=== PATIENT | female | born 1950 | race Caucasian/White ===

== ENCOUNTER → 2018-09-04 | Outpatient (CLI) | payer OTHER, MEDICARE | LOC: CAT 08:00 | DX: R91.1 Solitary pulmonary nodule (principal) ==

== ENCOUNTER → 2019-08-16 | Outpatient (CLI) | payer OTHER, MEDICARE | LOC: CAT 10:43 | DX: R91.1 Solitary pulmonary nodule (principal); J98.4 Other disorders of lung; M25.78 Osteophyte, vertebrae ==

== ENCOUNTER → 2020-09-11 | Outpatient (CLI) | payer OTHER, MEDICARE | LOC: CAT 09:37 | PROVIDERS: ATTEND Pediatrics | DX: R91.1 Solitary pulmonary nodule (principal); R07.9 Chest pain, unspecified; R06.02 Shortness of breath ==